=== PATIENT | male | born 1960 | race Caucasian/White ===

== ENCOUNTER 2023-10-26 12:01 | Day surgery (SDC) | payer OTHER ==
[~2023-10-26] VITALS: Ht 182.9 cm; Wt 92.6 kg
[~2023-10-26 12:01] MED LIST: Famotidine 20 MG TAB PO SCH; LR 1,000 ML IV SCH
[2023-10-26] MEDS ORDERED: PROAIR HFA0.09 MG/AC IH (12:32)
[2023-10-26] MEDS ORDERED: PRINIVIL10 MG PO (12:32)
[2023-10-26] MEDS ORDERED: LIPITOR 40MG TA40 MG PO (12:32)
[2023-10-26] MEDS ORDERED: TRELEGY ELLIPT1 EAC1 IH (12:33)
[2023-10-26] MEDS ORDERED: VITAMIN D31000 IU PO (12:34)
[2023-10-26 12:50] VITALS: BP 140/74; PULSE 82; TEMP 97.4
[2023-10-26] MEDS ORDERED: NS 10 ML IV ONE (13:32)
[2023-10-26] MEDS ORDERED: Ondansetron 4 MG/2 ML VIAL ONE (13:32)
[2023-10-26] MEDS ORDERED: fentaNYL 50 MCG/ML 2 ML VIAL ONE (13:32)
[2023-10-26] MEDS ORDERED: Lidocaine PF 2% (20 MG/ML) 5 ML VIAL ONE (13:32)
[2023-10-26] MEDS ORDERED: dexAMETHasone 10 MG/ML VIAL ONE (13:35)
[2023-10-26] MEDS ORDERED: Morphine 2 MG/1 ML VIAL [PACU/SDC ONLY] IV PRN (14:00)
[2023-10-26] MEDS ORDERED: hydrALAZINE 20 MG/ML 1 ML VIAL IV PRN (14:00)
[2023-10-26] MEDS ORDERED: Ondansetron 4 MG/2 ML VIAL IV PRN (14:00)
[2023-10-26] MEDS ORDERED: fentaNYL 50 MCG/ML 1 ML SYRINGE/VIAL [PACU/SDC ONLY] IV PRN (14:00)
[2023-10-26] MEDS ORDERED: HYDROmorphone 1 MG/1 ML SYRINGE [PACU/SDC ONLY] IV PRN (14:00)
[2023-10-26] MEDS ORDERED: NS 10 ML VIAL ICA ONE (14:15)
[2023-10-26] MEDS ORDERED: Topical Skin Adhesive 1 EACH (1 ML) TOP ONE (14:32)
[2023-10-26 14:39] VITALS: BP 109/78; PULSE 80; TEMP 98
[2023-10-26] MEDS ORDERED: TYLENOL 325MG325 MG PO (14:52)
[2023-10-26 14:54] VITALS: BP 132/74; PULSE 84
[2023-10-26 15:05] VITALS: BP 137/79; PULSE 82
--- NOTE | 2023-10-26 15:20 | NUR ---
1439 RETURNS TO ROOM 7 FROM OR PER CART WITH HOB ELEVATED 40 DEGREES. AWAKE, ALERT. RESP UNLABORED. VITAL SIGNS OBTAINED. LEFT NECK, LEFT CHEST INCISIONS INTACT WITHOUT REDNESS OR DRAINAGE. CALL LIGHT AT SIDE, IN ROOM. 1450 HOB ELEVATED 75 DEGREES TOLERATES PO COFFEE AND CRACKERS WITHOUT NAUSEA. 1500 DISCHARGE INSTRUCTIONS REVIEWED. PATIENT VERBALIZES UNDERSTANDING. COPY PROVIDED IN DISCHARGE FOLDER. 1505 AMBULATES TO BATHROOM WITH STANDBY ASSIST, THEN SITS IN CHAIR, DRESSES SELF.
== END 2023-10-26 15:20 | disposition home or self-care (01) ==
LOC: SDCO 12:01
DX: C34.11 Malignant neoplasm of upper lobe, right bronchus or lung (principal); G47.33 Obstructive sleep apnea (adult) (pediatric); Z91.199 Patient's noncompliance with other medical treatment and regimen due to unspecified reason; E66.9 Obesity, unspecified; Z68.27 Body mass index [BMI] 27.0-27.9, adult; I10 Essential (primary) hypertension; Z87.891 Personal history of nicotine dependence
CPT/HCPCS: C1788; J0690; J1100; J2405; J2704; J3010; J7120